=== PATIENT | male | born 1990 | race African-American/Black ===

== ENCOUNTER 2021-07-22 19:41 | Emergency (ER) | payer SELFPAY ==
[2021-07-22 20:25] VITALS: BP 107/61; PULSE 81; RESP 16; TEMP 37.1; O2SAT 97; BMI 29.0
--- NOTE | 2021-07-22 21:08 | ED.URI ---
HPI - URI/Sore Throat General Chief Complaint: Upper Respiratory Symptoms Stated Complaint: Fever,abd pain,sore throat Time Seen by Provider: 07/22/21 21:08 Source: patient Mode of arrival: ambulatory Limitations: no limitations History of Present Illness HPI Narrative: Patient complaining of body aches headache slight cough and sore throat has not received his COVID vaccine here exposed to patient with COVID at work 5 days ago no shortness of breath Related Data Allergies Allergy/AdvReac Type Severity Reaction Status Date / Time sulfamethoxazole Allergy Unknown HIVES Verified 07/22/21 20:30 [From BACTRIM] trimethoprim [From BACTRIM] Allergy Unknown HIVES Verified 07/22/21 20:30 lactose [LACTOSE] AdvReac Unknown DIARRHEA Verified 07/22/21 20:30 Review of Systems Review of Systems: Yes all other systems are reviewed and are negative PMFSH Past Medical History Medical History No known health problems Social History Social History Advance Directives: No Physical Exam Vital Signs: Vital Signs: Last Vital Signs Temp 98.7 F 07/22/21 20:25 Pulse 81 07/22/21 20:25 Resp 16 07/22/21 20:25 BP 107/61 07/22/21 20:25 Pulse Ox 97 07/22/21 20:25 BMI result Body Mass Index 29.0 Appearance: Alert. Oriented X3. No acute distress. ENT: Pharynx normal. Oral Mucosa moist Neck: Normal inspection. Neck supple. CVS: Normal heart rate and rhythm. Pulses normal. Respiratory: No respiratory distress. Equal air entry bilateral, no wheezing/rales/rhonchi Abdomen: Soft and nontender. Bowel sounds are present, Skin: Skin warm and dry. Normal skin color. Extremities: No lower extremity edema. Neuro: Oriented X 3. MDM - URI/Sore Throat Lab Data Attestation: I reviewed the patient's lab results. Labs: Lab Results 07/22/21 07/22/21 Range/Units 20:32 21:18 COVID-19 (HELLEN) Cancelled Positive A COVID-19 Clin Com Cancelled See Note Discharge Plan Discharge Clinical Impression: COVID-19 Patient Disposition: Home, Self-Care Instructions: COVID-19 (Coronavirus Disease 2019) (ED) Additional Instructions: Drink plenty of fluids Tylenol/Motrin for body aches Report to the ER/PCP if increased shortness of breath Stand Alone Forms: Work/School Release
[2021-07-22 21:36] LABS: COVID-19 Test Positive (Negative)
[2021-07-22] MEDS: Ibuprofen 600 MG TABLET PO (22:23)
== END 2021-07-22 22:28 | disposition home or self-care (01) ==
PROVIDERS: Emergency Provider Internal Medicine
DX: U07.1 COVID-19 (principal); R50.9 Fever, unspecified; M79.10 Myalgia, unspecified site; R51.9 Headache, unspecified
CPT/HCPCS: 87635; 99283

== ENCOUNTER 2022-08-17 02:31 | Emergency (ER) | payer OTHER, SELFPAY ==
[2022-08-17 02:41] VITALS: BP 122/80; BP 128/87; PULSE 75; PULSE 89; RESP 12; RESP 16; TEMP 36.7; O2SAT 98; BMI 31.3
--- NOTE | 2022-08-17 03:05 | ED_ITS ---
HPI - Eye Problem General Chief complaint: Eye Problems Stated complaint: work injury Time Seen by Provider: 08/17/22 02:49 Source: patient Mode of arrival: ambulatory Limitations: no limitations History of Present Illness HPI Narrative: While at work rubber flex pipe hit his left eye just prior to arrival since then patient is complaining of slight pain in the left eye vision is normal no scotomas slight bruising on the left cheek Related Data Allergies Allergy/AdvReac Type Severity Reaction Status Date / Time sulfamethoxazole Allergy Unknown HIVES Verified 07/22/21 20:30 [From BACTRIM] trimethoprim [From BACTRIM] Allergy Unknown HIVES Verified 07/22/21 20:30 lactose [LACTOSE] AdvReac Unknown DIARRHEA Verified 07/22/21 20:30 Review of Systems Review of Systems: Yes all other systems are reviewed and are negative [facility] Past Medical History Medical History No known health problems Social History Social History Advance Directives: No Physical Exam Vital Signs: Vital Signs: Last Vital Signs Temp 98.1 F 08/17/22 02:41 Pulse 75 08/17/22 02:41 Resp 16 08/17/22 02:41 BP 128/87 08/17/22 02:41 Pulse Ox 98 08/17/22 02:41 O2 Del Method 08/17/22 02:41 BMI result Body Mass Index 31.3 Const: General: cooperative, healthy appearing and no acute distress HEENT: Head: Yes normal to inspection Face images: 1. Superficial abrasion Eyes: General: appearance normal, both eyes and all related structures Visual Diggs: normal visual diggs by confrontation Alignment and Position: alignment normal Periorbital: periorbital findings abnormal (Slight soft tissue swelling lower lid) Conjunctivae: conjunctivae normal Sclerae: sclerae normal Corneas: corneas normal and fluorescein used Pupils: Equal, round and reactive pupils present EOM: EOMs intact bilaterally Direct Ophthalmoscopy: normal light reflex and no papilledema Resp: Effort & Inspection: normal respiratory effort Auscultation: clear to auscultation bilaterally Cardio: Rate: regular rate Rhythm: regular rhythm Neuro: Cranial nerves: Yes Equal, round and reactive pupils present Medications Administered Discontinued Medications Generic Name Dose Route Start Last Admin Trade Name Freq PRN Reason Stop Dose Admin Fluorescein Sodium 1 strip 08/17/22 03:20 08/17/22 03:31 Fluorescein Sodium Strip EYE-LEFT 08/17/22 03:21 1 strip ONCE ONE Administration Medical Decision Making Medical Decision Making [facility] Narrative: Patient with blunt injury to left eye 20/20 normal fundus exam normal, fluorescein test was negative for abrasion, discharge patient home advised to use ice pack Procedures Procedure Narrative Procedure Narrative: Ultrasound of left eye normal anterior chamber and posterior chamber normal, normal less position Discharge Plan Discharge Clinical Impression: Blunt injury, left eye Patient Disposition: Home, Self-Care Instructions: Eye Pain (ED) Additional Instructions: Ice pack, Tylenol/Motrin for pain 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
--- OUTSIDE RECORDS SUMMARY | 2022-08-17 03:15 | XMS_ITS | Continuity of Care Document ---
:1990 Author Organization [facility] Address [address] [place] [address]- Care Team Providers Name Role Phone Not on Staff, PCP Primary Care Physician Unavailable Encounter [facility] [place] Date(s): 08/02/21 - 08/02/[address] [address]- Discharge Disposition: A-D/C Home Attending Physician: Serjio Vaca DO Admitting Physician: Serjio Vaca DO Referring Physician: Not on Staff, Referring MD Allergies, Adverse Reactions, Alerts Substance Reaction Severity Status Bactrim Active Lactose Active Medications Motrin 600 mg oral tablet 600, mg, 1, tablet, By Mouth, 4 times a day, Scheduled / PRN, 15, 0, 0, 05/30/07 0:34:51, as needed for pain, Print JANIE Number, ADS OPPTHS, 64 Start Date: 05/30/07 Status: Ordered Results Radiology Reports Exam Date Time Procedure Performing Provider Status 08/02/21 2:20 PM Chest Portable Sonia Moreno; Auth (Verified) Notes:(Chest Portable) Reason For Exam: Chest Pain;Other:RESULT: Chest Portable Chest Portable CLINICAL INDICATION: Shortness of breath. COMPARISON: Chest x-ray, 05/01/2018. FINDINGS: The cardiac silhouette is within normal limits. Hilar and mediastinal contours are normal.The lungs are clear. There is no pleural effusion, pneumothorax, or evidence of CHF. No acute osseous abnormality is noted. IMPRESSION: No acute cardiopulmonary process. WSN: [id number] Ordering Physician: Zoya Grover Dictated By: Iza Bahkta MD Dictated Date/Time: 08/02/21 2:24 pm Reviewed By: Iza Bhakta MD Signed By: Iza Bhakta MD Signed Date/Time: 08/02/21 2:24 pm Transcribed By: JEANNE Transcribed Date/Time: 08/02/21 2:24 pm Vital Signs Most recent to oldest 1 2 3 [Reference Range]: Oxygen Saturation [94-100 %] 100 % 99 % 100 % (08/02/21 3:29 PM) (08/02/21 2:25 PM) (08/02/21 1:1 4 PM) Pulse Rate [55-90 bpm] 59 bpm 54 bpm 57 bpm (08/02/21 3:29 PM) *L* (08/02/21 1:14 PM) (08/02/21 2:25 PM) Blood Pressure [90-138/55-84 110/63 mm Hg 109/66 mm Hg 110 /58 mm Hg mm Hg] (08/02/21 3:29 PM) (08/02/21 2:25 PM) (08/02/21 1:1 4 PM) Respiratory Rate [16-30 16 br/min 24 br/min 20 br/mi n br/min] (08/02/21 3:29 PM) (08/02/21 1:14 PM) (08/02/21 12: 31 PM) Temperature [96.8-100.4 DegF] 98.1 DegF 98.5 DegF 98 .7 DegF (08/02/21 3:29 PM) (08/02/21 2:25 PM) (08/02/21 1:1 4 PM) Mode of Delivery (Oxygen) Room air Room air Room a ir (08/02/21 3:29 PM) (08/02/21 2:25 PM) (08/02/21 1:1 4 PM) Blood pressure sites Arm, right Arm, right Arm, right (08/02/21 3:29 PM) (08/02/21 2:25 PM) (08/02/21 1:1 4 PM) Temperature Route Oral Oral Oral (08/02/21 3:29 PM) (08/02/21 2:25 PM) (08/02/21 1:1 4 PM) Social History Social History Type Response Smoking Status 10 or more cigarettes (1/2 p ack or more)/day in last 30 days entered on: 08/24/18 Sex
[2022-08-17] MEDS: Fluorescein Sodium STRIP 1 STRIP EYE-LEFT (03:31)
== END 2022-08-17 04:00 | disposition home or self-care (01) ==
PROVIDERS: Emergency Provider Internal Medicine
DX: S00.12XA Contusion of left eyelid and periocular area, initial encounter (principal); W22.8XXA Striking against or struck by other objects, initial encounter; Y93.9 Activity, unspecified; Y92.59 Other trade areas as the place of occurrence of the external cause; Y99.0 Civilian activity done for income or pay
CPT/HCPCS: 99283

== ENCOUNTER 2022-09-13 03:33 | Emergency (ER) | payer OTHER, SELFPAY ==
[2022-09-13 04:02] VITALS: BP 132/85; PULSE 83; RESP 18; TEMP 36.4; O2SAT 99; BMI 28.8
--- NOTE | 2022-09-13 06:06 | PC.NURSE ---
pt left with out being seen.
== END 2022-09-13 06:09 | disposition left against medical advice (07) ==
PROVIDERS: Emergency Provider Emergency Medicine
DX: H57.12 Ocular pain, left eye (principal)
CPT/HCPCS: 99281

== ENCOUNTER 2022-09-25 10:42 | Outpatient (REF) | payer OTHER, SELFPAY ==
[2022-09-25 13:22] LABS: MANUAL DIFF FLAG NO
[2022-09-25 13:36] LABS: Basophils Absolute Auto 0.1 X10*3/uL (0.0-0.2); Basophils Percent Auto 1.2 % (0-2); Eosinophils Absolute Auto 0.1 X10*3/uL (0.0-0.4); Eosinophils Percent Auto 2.2 % (0-4); Hematocrit 50.3 % (42.0-52.0); Hemoglobin 16.9 g/dl (14.0-18.0); Imm Gran Abs Auto 0.01 X10*3/uL (0.00-0.03); Imm Gran Pct Auto 0.2 % (0.0-0.4); Lymphocytes Percent Auto 46.9 % (20-40); Mean Corpuscular HGB Conc 33.6 g/dl (31.0-36.0); Mean Corpuscular Hemoglobin 30.2 pg (27.0-33.0); Mean Corpuscular Volume 89.8 fL (80.0-98.0); Mean Platelet Volume 13.2 fL (9.4-12.4); Monocytes Absolute Auto 0.6 X10*3/uL (0.1-1.2); Monocytes Percent Auto 13.4 % (2-11); Neutrophils Absolute Auto 1.5 x10*3/uL (2.0-8.3); Neutrophils Percent Auto 36.1 % (45-73); Platelet Count 184 X10*3/uL (160-400); Red Cell Distribution Width 12.2 % (11.0-16.0); White Blood Count 4.2 X10*3/uL (4.8-10.8)
[2022-09-25 13:59] LABS: C Reactive Protein < 0.10 mg/dL (< or = 0.50); Rheumatoid Factor < 13.0 IU/mL (<15.0)
[2022-09-25 14:11] LABS: Syphilis Screen Nonreactive (Nonreactive)
[2022-09-25 14:35] LABS: Erythrocyte Sedimentation Rate 1 MM/HR (0-15)
[2022-09-28 08:34] LABS: Anti Nuclear Antibody Screen NEGATIVE (NEGATIVE)
[2022-09-30 05:20] LABS: Angiotensin Converting Enzyme 42 U/L (9-67)
== END 2022-09-25 10:43 | disposition home or self-care (01) ==
LOC: HO.10HDL 10:42
PROVIDERS: Visit Provider Ophthalmology
DX: H20.012 Primary iridocyclitis, left eye (principal); H20.9 Unspecified iridocyclitis
CPT/HCPCS: 36415; 82164; 85025; 85652; 86038; 86039; 86140; 86431; 86780

== ENCOUNTER 2023-07-18 11:44 | Emergency (ER) | payer BC, SELFPAY ==
--- NOTE | ~2023-07-18 | XR_ITS ---
EXAMINATION: XR CHEST CLINICAL INFORMATION: Cough COMPARISON: None available. TECHNIQUE: 2 views of the chest were obtained. FINDINGS: Lungs are well-inflated and clear. Trachea is midline in position. No interstitial disease, consolidation or mass. No pleural effusion or pneumothorax. Cardiac silhouette and pulmonary vessels are normal in size. The mediastinum and laury have normal contour. The visualized bones and upper abdomen are unremarkable. XR/XR chest 2V IMPRESSION: No acute cardiopulmonary abnormality.
--- NOTE | 2023-07-18 11:59 | ED_ITS ---
HPI - URI/Sore Throat General Chief Complaint: Upper Respiratory Symptoms Stated Complaint: Fever, chills, body aches Time Seen by Provider: 07/18/23 13:35 Source: patient, RN notes reviewed and old records reviewed Mode of arrival: ambulatory History of Present Illness HPI Narrative: 33-year-old male with no significant past medical history presenting to the ED complaining of myalgias, congestion, fever, cough, sore throat x last night. Denies taking any antipyretics today. Denies SOB, travel MD elicited complaint: fever and cough Related Data Previous Rx's Medication Instructions Recorded fluticasone propionate 50 2 spray intranasal DAILY #16 grams 07/18/23 mcg/actuation nasal spray,suspension (Flonase Allergy Relief) Allergies Allergy/AdvReac Type Severity Reaction Status Date / Time sulfamethoxazole Allergy Unknown HIVES Verified 09/13/22 04:04 [From BACTRIM] trimethoprim [From BACTRIM] Allergy Unknown HIVES Verified 09/13/22 04:04 lactose [LACTOSE] AdvReac Unknown DIARRHEA Verified 09/13/22 04:04 Review of Systems Review of Systems: Constitutional: + Fever, + Chills, +fatigue ENT/Mouth: No Ear Pain, + Nasal Congestion, No Sinus Pain, No Hoarseness, + sore throat, + Rhinorrhea, No Swallowing Difficulty Cardiovascular: No Chest Pain, No SOB Respiratory: + Cough, No Sputum, No Wheezing Gastrointestinal: No Nausea, No Vomiting, No Diarrhea, No Constipation, No Abdominal pain Musculoskeletal: No joint pain, + Myalgias, No Joint Swelling Skin: No Skin Lesions, No rash Neuro: No Weakness Yes all other systems are reviewed and are negative Constitutional: Constitutional: Reports as per [facility] Past Medical History Attestation statement: The following information was validated with the patient. Source: old records reviewed Onset Date is defined in the Problem List Problems that require an onset date and time if occurred within 24 hrs of arrival to the ED Aortic Dissection and Rupture; Neurologic impairment; Cardiopulmonary Arrest; Endotracheal Intubation; Insertion or Replacement of Mechanical Circulatory Assist Device Medical History No known health problems Physical Exam Vital Signs: Vital Signs: Last Vital Signs Temp 100.8 F H 07/18/23 13:35 Pulse 110 H 07/18/23 12:00 Resp 18 07/18/23 12:00 BP 114/66 07/18/23 12:00 Pulse Ox 95 07/18/23 12:00 O2 Del Method Room Air 07/18/23 12:00 BMI result Body Mass Index 30.1 Const: General: cooperative, healthy appearing and no acute distress Orientation/consciousness: patient oriented x3 Limitations: no limitations HEENT: Head: Yes normal to inspection and Yes atraumatic Ears: hearing grossly normal bilaterally, external ears normal, TM's normal bilaterally and mastoids normal General nose exam: Normal external nose present Face and sinus: Yes normal facial exam Mouth: Normal oral and palatal mucosa present Throat: Yes posterior oropharynx normal, Yes tonsils normal, Yes uvula midline, No peritonsillar mass and No uvular edema Eyes: General: appearance normal, both eyes and all related structures EOM: EOMs intact bilaterally Neck: Neck: Yes normal visual inspection and Yes no meningeal signs Resp: Effort & Inspection: normal respiratory effort and no respiratory distress Auscultation: clear to auscultation bilaterally, no crackles, no rales, no rhonchi and no wheezes Cardio: Rate: tachycardic Heart sounds: S1 normal heart sound present and S2 normal heart sound present Skin: Rashes: no rashes Wounds: no wounds Neuro: General: patient oriented x3, tone normal and no meningeal signs Cranial nerves: Yes CN's II-XII intact bilaterally Gait exam (Neuro): Normal gait present Extrem: General: Yes normal to inspection Course Course Course Narrative: RME: 33 yo M w/ no sig PMHx presenting to the ED c/o myalgias, congestion, fever, cough, sore throat x last night. 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 Tylenol, Viral testing, rapid strep, CXR ordered Full HPI, ROS and PE to be performed by primary ED provider. -CXR unremarkable. -COVID-19 positive Results discussed with patient including worrisome signs and symptoms and strict return precautions, and when to return to the emergency department. They verbalized understanding and feel safe for discharge at this time. Medications Administered Discontinued Medications Generic Name Dose Route Start Last Admin Trade Name Freq PRN Reason Stop Dose Admin Acetaminophen 975 mg 07/18/23 12:02 07/18/23 12:18 Acetaminophen 325 Mg Tablet PO 07/18/23 12:03 975 mg ONCE ONE Administration Medical Decision Making Medical Decision Making [facility] Narrative: 33-year-old male with no significant past medical history presenting to the ED complaining of myalgias, congestion, fever, cough, sore throat x last night. On exam initially febrile to 102.6, tachycardic likely from fever, NAD, nontoxic appearing, lungs CTA. Or pharynx WNL. Concern for viral illness. Rule out pneumonia. No evidence of strep pharyngitis/PUBLIC HEALTH OFFICER or retropharyngeal abscess Plan: Viral studies, CXR, antipyretic Please refer to course for remaining clinical decision making, interpretation of labs/imaging results, and discussions with consultants and/or family members. Differential Diagnosis Differential Diagnoses: The differential diagnosis associated with the pre sentation includes As above Lab Data [facility] Lab Attestation statement: I reviewed the patient's lab results. Labs: Lab Results 07/18/23 07/18/23 Range/Units 12:04 12:05 Influenza Type A (PCR) NEGATIVE (Negative) Influenza Type B (PCR) NEGATIVE (Negative) RSV RNA Qual (PCR) NEGATIVE (Negative) SARS-CoV-2 RNA (RT-PCR) POSITIVE A (Negative) S. pyogenes GrpA TANJA Negative (Negative) Radiology Impression Discussion of test interpretation with radiology: I have reviewed the radiologist's reading. Independent Historian Clinical information obtained from an independent historian. History obtained from or confirmed by: Parent External Record Review External record reviewed: Inpatient record, Office record, Outpatient record, Prior outpatient labs, Prior outpatient radiology, Primary care record and Outside ED record Tests considered The following testing was considered but not selected: As above Prescription Management I considered prescription management with: Pain Medication Discharge Plan Discharge Clinical Impression: COVID-19 Patient Disposition: Home, Self-Care Instructions: COVID-19 (Coronavirus Disease 2019) (ED) Additional Instructions: YOU HAVE COVID-19 At this time you will be okay for discharge. Please self isolate for 5 days. Do not expose yourself to others. You may not go to work or school. Please continue to follow cold instructions and wash your hands frequently. You may take Tylenol / Motrin as directed on the bottle for pain or fever. If you have constant or persistent shortness of breath, fever unresolved with medications, chest pain, or your unable to eat or drink please return to the ED CDC Guidelines for home isolation: - Stay away from others - WEAR A MASK if you are sick AND STAY HOME - Cover your mouth and nose with a tissue when you cough or sneeze. Dispose of tissues in a lined trash can and wash your hands immediately with soap and water for at least 20 seconds. If soap and water are not available, clean hands with alcohol-based hand b2b sales professional that contains at least 60% alcohol. - Clean your hands often with soap and water for at least 20 seconds - Avoid touching your eyes, nose and mouth with unwashed hands - Do not share dishes, drinking glasses, cups, eating utensils, towels, or bedding with other people in your home. After using these items, wash them thoroughly with soap and water or put in the dye colorist dyer. - Clean high-touch surfaces in your isolation area ( sick room and bathroom) every day; let a caregiver clean and disinfect high-touch surfaces in other areas of the home. Clean the area or item with soap and water or another detergent if it is dirty. Then, use a household disinfectant. - Limit contact with pets and animals: If you must care for a pet, wash your hands before and after interacting with them) Prescriptions: New fluticasone propionate [Flonase Allergy Relief] 50 mcg/actuation spray,suspension 2 spray intranasal DAILY Qty: 16 0RF Rx Instructions: administer into each nostril Referrals: Physician,Unknown J [Primary Care Provider] - Stand Alone Forms: Work/School Release
[2023-07-18 12:00] VITALS: BP 114/66; PULSE 110; RESP 18; TEMP 39.2; O2SAT 95; BMI 30.1
[2023-07-18] MEDS: Acetaminophen 325 MG TABLET 975 MG PO (12:18)
[2023-07-18 12:34] LABS: IDNOW Serial# 08D9AD1C; Strep A Nucleic Acid Negative (Negative)
[2023-07-18 13:20] LABS: Influenza A PCR NEGATIVE (Negative); Influenza B PCR NEGATIVE (Negative); Resp Syncy Virus RNA Qual PCR NEGATIVE (Negative); SARS COV2 PCR INHOUSE POSITIVE (Negative)
[2023-07-18 13:35] VITALS: TEMP 38.2
== END 2023-07-18 13:45 | disposition home or self-care (01) ==
PROVIDERS: Physician Assistant; Emergency Provider Emergency Medicine
DX: U07.1 COVID-19 (principal); R50.9 Fever, unspecified; R05.9 Cough, unspecified
CPT/HCPCS: 0241U; 71046; 87651; 99283

== ENCOUNTER 2024-08-18 16:00 | Emergency (ER) | payer BC, SELFPAY ==
--- NOTE | ~2024-08-18 | XR_ITS ---
CLINICAL HISTORY: chest pain 1 view chest x-ray Comparison: CR/SR - XR CHEST 2V - 07/18/23 12:59 EST Findings: The lungs are clear. Normal size heart. No acute fracture. IMPRESSION: 1. No acute findings. This document has been electronically signed by: Ash Oswald MD on 08/18/2024 17:28:58
--- NOTE | 2024-08-18 16:04 | ECG_ITS ---
Test Reason : CHEST PAIN Blood Pressure : */* mmHG Vent. Rate : 80 BPM Atrial Rate : 80 BPM P-R Int : 146 ms QRS Dur : 84 ms QT Int : 362 ms P-R-T Axes : 44 31 52 degrees QTcB Int : 417 ms Normal sinus rhythm Normal ECG No previous ECGs available Referred By: Generic ED Physician Electronically Signed By: RADHA LADD MD
[2024-08-18 16:50] VITALS: BP 108/76; PULSE 82; RESP 16; TEMP 36.2; O2SAT 97; BMI 30.4
[2024-08-18 20:38] LABS: Basophils Absolute Auto 0.1 X10*3/uL (0.0-0.2); Basophils Percent Auto 1.3 % (0-2); Eosinophils Absolute Auto 0.3 X10*3/uL (0.0-0.4); Eosinophils Percent Auto 6.4 % (0-4); Hematocrit 45.7 % (42.0-52.0); Hemoglobin 15.9 g/dl (14.0-18.0); Imm Gran Abs Auto 0.01 X10*3/uL (0.00-0.03); Imm Gran Pct Auto 0.2 % (0.0-0.4); Lymphocytes Percent Auto 63.1 % (20-40); MANUAL DIFF FLAG SCAN; Mean Corpuscular HGB Conc 34.8 g/dl (31.0-36.0); Mean Corpuscular Hemoglobin 30.4 pg (27.0-33.0); Mean Corpuscular Volume 87.4 fL (80.0-98.0); Mean Platelet Volume 11.9 fL (9.4-12.4); Monocytes Absolute Auto 0.5 X10*3/uL (0.1-1.2); Monocytes Percent Auto 10.6 % (2-11); Neutrophils Absolute Auto 0.9 x10*3/uL (2.0-8.3); Neutrophils Percent Auto 18.4 % (45-73); Platelet Count 240 X10*3/uL (160-400); Red Blood Count 5.23 X10*6/uL (4.60-5.80); Red Cell Distribution Width 12.1 % (11.0-16.0); SCAN SMEAR FLAG 1; White Blood Count 4.7 X10*3/uL (4.8-10.8)
[2024-08-18 20:54] LABS: Alanine Aminotransferase 42 U/L (0-40); Albumin Level 4.3 g/dL (3.5-5.0); Alkaline Phosphatase 83 U/L (39-117); Anion Gap 14 (12-20); Aspartate Amino Transferase 30 U/L (5-37); Bilirubin Total 0.3 mg/dL (0.0-1.0); Blood Urea Nitrogen 9 mg/dL (9-16); Carbon Dioxide 23 mmol/L (22-29); Chloride 107 mmol/L (96-108); Creatinine Clr Calc Pharmacy 118.7; Estimated Glomerular Filt Rate > 60; Glucose Random 101 mg/dL (60-115); Magnesium 2.2 mg/dL (1.6-2.6); Potassium 3.6 mmol/L (3.3-5.1); Sodium 140 mmol/L (135-145); Total Protein 7.9 g/dL (6.5-8.0)
[2024-08-18 21:04] LABS: Troponin-I High Sensitivity < 2.7 ng/L (<3.5-35.0)
[2024-08-18 21:15] LABS: Influenza A PCR NEGATIVE (Negative); Influenza B PCR NEGATIVE (Negative); Resp Syncy Virus RNA Qual PCR NEGATIVE (Negative); SARS COV2 PCR INHOUSE NEGATIVE (Negative)
[2024-08-18 21:23] LABS: SLIDE REVIEW VERIFIED
[2024-08-19] VITALS: BP 112/76; PULSE 72; RESP 16; TEMP 36.2; O2SAT 97
--- NOTE | 2024-08-19 00:48 | ED.CHESTPAIN ---
HPI - Chest Pain General Chief Complaint: Chest Pain Stated Complaint: Chest pain Time Seen by Provider: 08/18/24 23:22 Source: patient Limitations: no limitations History of Present Illness ED Provider: Elza Hernández PA-C HPI narrative: 34-year-old otherwise healthy male presents with right-sided chest pain x1 week. Patient states he performs many physical tasks at work, he strained his anterior chest wall. Pain worse with movement of right upper extremity movement of torso and palpation of chest wall. Denies shortness of breath, or cough or cold symptoms. No fevers. Related Data Previous Rx's ?Medication ?Instructions ?Recorded fluticasone propionate 50 2 spray intranasal DAILY #16 grams 07/18/23 mcg/actuation nasal spray,suspension (Flonase Allergy Relief) ibuprofen 600 mg tablet 600 mg PO Q6H PRN pain #20 tabs 08/19/24 methocarbamol 750 mg tablet 1,500 mg (2 x 750 mg) PO TID PRN 08/19/24 pain, moderate #20 tabs Allergies Allergy/AdvReac Type Severity Reaction Status Date / Time sulfamethoxazole Allergy Unknown HIVES Verified 08/18/24 16:52 [From BACTRIM] trimethoprim [From BACTRIM] Allergy Unknown HIVES Verified 08/18/24 16:52 lactose [LACTOSE] AdvReac Unknown DIARRHEA Verified 08/18/24 16:52 Review of Systems Review of Systems: Yes all other systems are reviewed and are negative Constitutional: Constitutional: Denies fever(s) Cardiovascular: Cardiovascular: Reports chest pain and Denies dyspnea Respiratory: Respiratory: Denies cough and Denies dyspnea Gastrointestinal: Gastrointestinal: Denies abdominal pain, Denies nausea and Denies vomiting PMF Past Medical History Attestation statement: The following information was validated with the patient. Medical History No known health problems Social History Social History Advance Directives: No Advance Directives Information Provided: No Do you have a plan to hurt others: No Plan Physical Exam Vital Signs: Vital Signs: Last Vital Signs Temp 97.2 F 08/19/24 00:00 Pulse 72 08/19/24 00:00 Resp 16 08/19/24 00:00 BP 112/76 08/19/24 00:00 Pulse Ox 97 08/19/24 00:00 O2 Del Method Room Air 08/19/24 00:00 BMI result Body Mass Index 30.4 Const: Other: Alert, well-appearing Orientation/consciousness: patient oriented x3 Chest: Other: Tenderness to palpation across right anterior chest wall, no deformity Resp: Effort & Inspection: normal respiratory effort Cardio: Other: Normal peripheral perfusion Skin: Other: Warm dry no rash Neuro: General: patient oriented x3, gait normal, no focal motor deficits and CN's II-XI intact bilaterally Extrem: Other: Pain elicited right anterior chest wall with movement of right upper extremity Psych: Other: Calm cooperative Medical Decision Making Medical Decision Making MDM Narrative: 34-year-old otherwise healthy male presents with right-sided chest pain x1 week. Patient states he performs many physical tasks at work, he strained his anterior chest wall. Pain worse with movement of right upper extremity movement of torso and palpation of chest wall. Denies shortness of breath, or cough or cold symptoms. No fevers. No chronic issues History: Per patient I have considered the following differential diagnoses: Chest wall strain, pneumonia, viral syndrome, costochondritis, ACS Plan: ACS was considered, screening labs including cardiac enzymes EKG and chest x-ray were obtained, however the patient's symptoms are consistent with chest wall strain and he has a mechanism of injury to support it. Furthermore his heart score is 0. Thought about costochondritis, however he has not had preceding viral syndrome. Likewise, he has no infectious symptoms to suggest pneumonia. I have independently reviewed the following tests: Labs: No leukocytosis, not anemic, no electrolyte abnormality troponin negative, viral panel negative EKG: Normal sinus rhythm, rate of 80, no ischemic changes no ectopy Chest x-ray:Findings: The lungs are clear. Normal size heart. No acute fracture. IMPRESSION: 1. No acute findings. This document has been electronically signed by: Ash Oswald MD on 08/18/2024 17:28:58 Lab Data 08/18/24 20:32 08/18/24 20:32 Labs: Lab Results 08/18/24 Range/Units 20:32 WBC 4.7 L (4.8-10.8) X10*3/uL RBC 5.23 (4.60-5.80) X10*6/uL Hgb 15.9 (14.0-18.0) g/dl Hct 45.7 (42.0-52.0) % MCV 87.4 (80.0-98.0) fL MCH 30.4 (27.0-33.0) pg MCHC 34.8 (31.0-36.0) g/dl RDW 12.1 (11.0-16.0) % Plt Count 240 D (160-400) X10*3/uL MPV 11.9 (9.4-12.4) fL Immature Gran % (Auto) 0.2 (0.0-0.4) % Neut % (Auto) 18.4 L (45-73) % Lymph % (Auto) 63.1 H (20-40) % [place] % (Auto) 10.6 (2-11) % Eos % (Auto) 6.4 H (0-4) % Baso % (Auto) 1.3 (0-2) % Lymph # (Auto) 3.0 (1.2-4.9) X10*3/uL [place] # (Auto) 0.5 (0.1-1.2) X10*3/uL Eos # (Auto) 0.3 (0.0-0.4) X10*3/uL Baso # (Auto) 0.1 (0.0-0.2) X10*3/uL Abs Immat Gran (auto) 0.01 (0.00-0.03) X10*3/uL Absolute Neuts (auto) 0.9 L (2.0-8.3) x10*3/uL Absolute Nucleated RBC 0.000 (0.0-0.012) X10*3/uL Nucleated RBC % (auto) 0.0 (0.0-0.2) /100WBC Smear Tech's Comments VERIFIED Sodium 140 (135-145) mmol/L Potassium 3.6 (3.3-5.1) mmol/L Chloride 107 (96-108) mmol/L Carbon Dioxide 23 (22-29) mmol/L Anion Gap 14 (12-20) BUN 9 (9-16) mg/dL Creatinine 0.95 (0.5-1.4) mg/dL Estim Creat Clear Calc 118.7 Estimated GFR > 60 Random Glucose 101 (60-115) mg/dL Calcium 9.0 (8.4-10.2) mg/dL Magnesium 2.2 (1.6-2.6) mg/dL Total Bilirubin 0.3 (0.0-1.0) mg/dL AST 30 (5-37) U/L ALT 42 H (0-40) U/L Alkaline Phosphatase 83 (39-117) U/L Troponin I High Sens < 2.7 (<3.5-35.0) ng/L Total Protein 7.9 (6.5-8.0) g/dL Albumin 4.3 (3.5-5.0) g/dL Influenza Type A (PCR) NEGATIVE (Negative) Influenza Type B (PCR) NEGATIVE (Negative) RSV RNA Qual (PCR) NEGATIVE (Negative) SARS-CoV-2 RNA (RT-PCR) NEGATIVE (Negative) Discharge Plan Discharge Clinical Impression: Strain of chest wall Patient Disposition: Home, Self-Care Instructions: Chest Wall Pain (ED) Additional Instructions: You are being treated for chest wall strain. See home care instructions. Use the ibuprofen as directed as an anti-inflammatory. Use the methocarbamol, this is a muscle relaxant, as needed for further pain. To note this medication will cause drowsiness, do not drive or operate machinery while taking the medication. All of your screening labs including a cardiac enzymes were normal, there were no concerning changes on the EKG in your chest x-ray is clear. Follow up with your primary care provider as needed. Prescriptions: New ibuprofen 600 mg tablet 600 mg PO Q6H PRN (Reason: pain) Qty: 20 0RF methocarbamol 750 mg tablet 1,500 mg PO TID PRN (Reason: pain, moderate) Qty: 20 0RF No Action fluticasone propionate [Flonase Allergy Relief] 50 mcg/actuation spray,suspension 2 spray intranasal DAILY Qty: 16 0RF Rx Instructions: administer into each nostril Stand Alone Forms: Work/School Release Print Language: [place]
--- NOTE | 2024-08-19 01:37 | PC.NURSE ---
reviewed discharge instructions with pt. pt verbalized understanding, no sign of distress upon discharge. pt able to ambulate with a steady gait.
[2024-08-19 01:38] VITALS: BP 112/76; PULSE 72; RESP 16; TEMP 36.2; O2SAT 97
== END 2024-08-19 01:38 | disposition home or self-care (01) ==
PROVIDERS: Emergency Provider Emergency Medicine
DX: R07.9 Chest pain, unspecified (principal); S29.011A Strain of muscle and tendon of front wall of thorax, initial encounter; X58.XXXA Exposure to other specified factors, initial encounter; Y93.9 Activity, unspecified; Y92.9 Unspecified place or not applicable; Y99.9 Unspecified external cause status; Z03.818 Encounter for observation for suspected exposure to other biological agents ruled out
CPT/HCPCS: 0241U; 36415; 71045; 80053; 83735; 84484; 85025; 93005; 99283; 99285

== ENCOUNTER → 2024-08-18 16:04 | Outpatient (BNV) | payer BC, SELFPAY | PROVIDERS: Emergency Provider Emergency Medicine; Visit Provider Internal Medicine Cardiovascular Disease | DX: R07.9 Chest pain, unspecified (principal) | CPT/HCPCS: 93010 ==

== ENCOUNTER → 2024-08-18 16:54 | Outpatient (BNV) | payer BC, SELFPAY | PROVIDERS: Visit Provider Radiology Diagnostic Radiology | DX: R07.9 Chest pain, unspecified (principal) | CPT/HCPCS: 71045 ==

== ENCOUNTER 2024-12-22 08:54 | Outpatient (AMB) | payer BC, SELFPAY ==
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
[2024-12-22 09:01] VITALS: BP 126/83; PULSE 86; O2SAT 98; BMI 28.1
--- OUTSIDE RECORDS SUMMARY | 2024-12-22 09:20 | XMS_ITS | Data Portability ---
Author Organization JOSEP Clemente s, [address] Address [address] [place] [address] Care Team Providers Care Offset Press Assistant Name Role Phone [facility] Insurance Adju ster Unavailable Assessment No assessment recorded. Plan of Treatment Reminders Order Date Submit Date Provider Last Modified By Organization Details Last Modified Time Details Appointments None recorded. Lab None recorded. Referral None recorded. Procedures None recorded. Surgeries None recorded. Imaging None recorded. Medication Orders clindamycin HCl 300 mg capsule 2023 024 [facility]/Pharmacy #[id number], [address] [place], [address], 19:47:39 triamcinolo ne acetonide 0.1 % topical cream [id number] [address] [place], [address], 19:48:25 prednisone [address] tablet [id number] [address] [place], [address], 19:45:37 Patient TargetsNo targets recorded. Patient Instructions Encounter Date Encounter Id Patient Instructions Last Modified By Organization Details Last Modified Time 11/09/2023 [id number] lupus: care instructions Not available 11/09/2023 09:13:36 rash: care instructions Not available 11/09/2023 09:13:36 12/30/2023 [id number] hives: care instructions [email or web address] Not available 12/30/2023 19:47:38 Reason for Referral None Reported. Problems Name Problem SNOMED Code Status Onset Date Resolution Date Notes Provider Name and Address Organization Details Recorded Time Rash of systemic lupus erythematosus 22001102 Active 2023 Monica Krause, ELVIRA [address] , [place], [address], [place] - [facility] 4 09:12:05 Cellulitis of skin 542270730 Active 2023 Remi Gonzalez, DO [address] , [place], [address], [place] - [facility] 4 19:48:32 Problem Notes None recorded. Medical Equipment None Reported. Allergies Allergen ID Allergen Name Allergen Category Reaction Reaction Severity Criticality Documentation Date Start Date Code Code System Note Provider Name and Address Organization Details Recorded Time 980357 Bactrim medicatio n anaphylax is Not available high 11/09/2023 81146 9 RxNorm Sonia mccarty, [place] - [facility] 4 19:45:23 504420 lactose food,medi cation nausea severe Not available 12/30/2023 6211 RxNorm Soniacyn Templeton null, [place] - [facility] 4 19:45:51 Medications Name Sig Start Date Stop Date Status Note LastModified by Organization Details LastModified Time clindamycin HCl 300 mg capsule Take 1 capsule every 8 hours by oral route for 10 days. 2023 active Not Available Not Available Not Avai lable triamcinolone acetonide 0.1 % topical cream APPLY A THIN LAYER TO THE AFFECTED AREA(S) BY TOPICAL ROUTE 2 TIMES PER DAY as needed 2023 active Not Available Not Available Not Avai lable Vitals Date Recorded Body height Body mass index (BMI) Body weight Oxygen saturation Oxygen saturation in Arterial blood by Pulse oximetry Heart rate Body temperature Systolic blood pressure Diastolic blood pressure Provider Name and Address Organization Details Last Updated DateTime 4 172.72 cm 30.7 kg/m2 24530.6 6 g 98.5 % 98.5 % 79 /min 98.5 [degF] 152 mm[Hg] 97 mm[Hg] Susana Smith PA [employer] [facility] 4 08:45:28 Date Recorded Body height Body mass index (BMI) Body weight Oxygen saturation Oxygen saturation in Arterial blood by Pulse oximetry Heart rate Respiratory rate Body temperature Systolic blood pressure Diastolic blood pressure Provider Name and Address Organization Details Last Updated DateTime 4 172.72 cm 30.9 kg/m2 87909.2 5 g 97 % 97 % 108 /min 18 /min 97.1 [degF] 127 mm[Hg] 86 mm[Hg] Sonia Templeton PA [employer] [facility] 4 19:44:54 Social History Question Answer Notes LastModified by Phase III Development Details LastModified Time Tobacco Smoking Status Current Every Day Smoker [facility]ccarty [facility] 12/30/2023 19:46:46 Have You Had A Flu Shot This Season? Yes [email or web address] Information not available 12/30/2023 Have You Had Direct Contact, Or Contact During Intimacy, With Monkeypox Rash, Scabs, Or Body Fluids From A Person With Monkeypox? No Information not available 11/09/2023 What Is Your Relationship Status? [email or web address] Information not available 12/30/2023 Have You Recently Traveled Abroad? No Information not available 11/09/2023 Are You Currently In School? No Information not available 11/09/2023 Sex: Unknown Functional Status Question Answer Note LastModified by [facility] Details LastModified Time How many times per week do you consume alcohol? Less than 1 time per week [email or web address] Information not available 12/30/2023 Do you use any illicit or recreational drugs? No Information not available 12/30/2023 Do you or have you ever used any other forms of tobacco or nicotine? Yes Information not available 11/09/2023 What is your level of alcohol consumption? Occasional [email or web address] Information not available 12/30/2023 Are you currently employed? Yes Information not available 11/09/2023 Mental Status None recorded. Family History Relationship Description Onset Age of this Age Resolved Age Notes LastModified by Organization Details LastModified Time Mother Lupus erythematosu s [email or web address] Not available 2023 19:46:14 Mother Malignant neoplastic disease [email or web address] Not available 2023 19:46:25 Medical History No medical history recorded. Past Encounters Encounter ID Performer Location Encounter Start Date Encounter Closed Date Diagnosis/Indication Diagnosis SNOMED-CT Code Diagnosis ICD10 Code Diagnosis Note [id number] [address] [place] [address] 07/20/2021 11:23:00 07/20/2021 12:07:15 [id number] [address] [place] [address] 11/05/2020 09:02:57 11/05/2020 09:25:26 [id number] [address] [place] [address] 04/29/2018 18:04:12 04/29/2018 18:56:59 [id number] [address] [place] [address] 02/20/2018 18:26:14 02/20/2018 20:24:50 [id number] [address] [address] [address] 08/02/2021 11:27:35 08/02/2021 11:58:51 [id number] [place] [address] 11/24/2020 12:51:08 11/24/2020 13:37:17 [id number] [facility] [address] 07/12/2021 09:11:17 07/12/2021 10:33:33 [id number] [facility] [address] 06/20/2021 08:51:14 06/20/2021 14:36:02 [id number] [facility] [address] 09/25/2017 11:06:27 09/25/2017 11:54:00 [id number] [place] Krause [place] [address] [address] 11/09/2023 08:20:09 11/09/2023 09:22:35 Rash of systemic lupus erythematosus 10933187 M32.8 Keep your daily schedule as simple as possible.K eep your list of things to do as short as you can.Exerci se regularly. A daily walk or swim, for example, can lower stress, clear your head, improve your mood, and help fight tiredness. Use meditation , yoga, or guided imagery to relax.Get plenty of rest. Some people with lupus need up to 12 hours of sleep every night.Pace yourself. Do not do too many activities .Ask others for help. Do not try to do everything yourself.T krzysztof short breaks from your usual activities . Think about cutting down on work hours when your symptoms are severe.If you think that depression or anxiety is making you feel more tired, talk to your doctor, a mental health profession al, or both.follo w up with your regular doctor for complete evaluation of possible lupus flare [place] [id number] [place] [address] [address] 12/30/2023 19:33:28 12/30/2023 19:49:56 Cellulitis of skin 648937130 L03.90 See pcp in 3-4 days. Go to ER if anything worsens. Otc tylenol as needed for pain. Symptomati c treatment. use cool compress. probiotics and yogurt daily po All of patients questions have been answered. Patient has understand ing and agreement of all of this. Health Concerns Section Related Observation LastModified by Organization Detai ls LastModified Time None Recorded Concern Status LastModified by Organization Details LastModified Time None Recorded Advance Directives Directive None Recorded Payers Insurance Date Sequence Insurance Name Policy Number Policy Dennison Covered Member ID Dennison Member ID Guarantor Name 12/30/2023 1 [place] [id number] Saurabh Edwards [id number] Saurabh Edwards 11/09/2023 AMGUARD [id number] [employer] Saurabh Edwards 11/09/2023 GENERIC WORKERS COMP Saurabh Edwards 11/09/2023 GENERIC WORKER'S COMP (MOVED TO HOLD) Saurabh Edwards 11/09/2023 1 [place] Saurabh Edwards [id number] Saurabh Edwards Notes Date Note Type Note Provider Name and Address Organization Details Recorded Time 11/09/2023 text/html Skin Redness UCReported bypatient.Location:f nat; bilateral arm; bilateral hand Quality:not painful;erythematous Severity:moderate Duration:4 weeks Onset:gradual onset Alleviating factors:nothing gives relief Aggravating factors:nothing makes it worse Symptoms:no fever; no nausea; no vomiting Presents with rash for a month now , both arms and around his right eye, cheeks with other associated sx Monica Krause, ELVIRA [address] [facility] [place], [address], [place] [employer] [facility] 11/09/2023 19:53:34 12/30/2023 text/html pt presenting w/ rash today left antecubital area. Onset 5-6 days ago. pt reports he was away @ [place], prolonged sun exposure- pt did not use sunscreen. pt has rash in L. AC area, scabbed and raw, pt reports it is intermittently itchy, has gotten worse over the course. pt reports slightly spread to R. arm. pt has tried cortisone cream, denies pain, and radiation of pain. no feversno hx of eczema or psoriasis. no hx of multple frequent rashes Remi Gonzalez DO [address] [place], [address], PA [email or web address] [facility] 12/30/2023 19:56:51
== END 2024-12-22 09:30 | disposition home or self-care (01) ==
LOC: HO.PMC 08:55
PROVIDERS: PCP Nurse Practitioner Family; Referring Provider Nurse Practitioner Family; Visit Provider Nurse Practitioner Family
DX: M54.16 Radiculopathy, lumbar region (principal); G89.29 Other chronic pain; M51.360 Other intervertebral disc degeneration, lumbar region with discogenic back pain only; M47.816 Spondylosis without myelopathy or radiculopathy, lumbar region; M25.551 Pain in right hip
CPT/HCPCS: 99204

== ENCOUNTER → 2024-12-22 08:54 | Outpatient (BNVA) | payer BC, SELFPAY | PROVIDERS: PCP Nurse Practitioner Family; Referring Provider Nurse Practitioner Family; Visit Provider Nurse Practitioner Family ==

== ENCOUNTER → 2024-12-30 18:57 | Outpatient (BNV) | payer BC, SELFPAY | PROVIDERS: Visit Provider Radiology Diagnostic Radiology | DX: M51.27 Other intervertebral disc displacement, lumbosacral region (principal) | CPT/HCPCS: 72148 ==

== ENCOUNTER 2024-12-30 19:15 | Outpatient (REF) | payer BC, SELFPAY ==
--- NOTE | ~2024-12-30 | MR_ITS ---
EXAMINATION: MR LUMBAR SPINE WITHOUT IV CONTRAST History: M54.16 - Radiculopathy, lumbar region Technique: Sagittal T1, T2 and STIR, and axial T1 and T2 weighted images of the lumbar spine were obtained per departmental protocol. Comparison: There are no prior studies available for comparison. Findings: There is mild levoscoliosis. The vertebral bodies maintain normal height and marrow signal intensity. There is no spondylolisthesis. There is mild degenerative disc disease at the L5-S1 level with disc desiccation and loss of disc height. At T12-L1,there is no evidence of disc herniation, central spinal stenosis, or neural foraminal narrowing. At L1-2, there is no evidence of disc herniation, central spinal stenosis, or neural foraminal narrowing. At L2-3, there is no evidence of disc herniation, central spinal stenosis, or neural foraminal narrowing. At L3-4, there is no evidence of disc herniation, central spinal stenosis, or neural foraminal narrowing. At L4-5, there is no evidence of disc herniation, central spinal stenosis, or neural foraminal narrowing. At L5-S1, there is a moderate central/left paramedian disc protrusion causing mild mass effect on the thecal sac and descending left S1 nerve root. There is no central spinal or neural foraminal stenosis. The conus terminates at the T12-L1 level and demonstrates normal signal intensity. There are probable subcentimeter cyst at the upper pole of the right kidney. MR/MR lumbar spine wo con Impression: 1. Mild levoscoliosis. Mild degenerative disc disease at L5-S1. 2. Moderate central/left paramedian disc protrusion at L5-S1 causing mild mass effect on the thecal sac and descending left S1 nerve root. Electronically signed by: Elías Henderson MD 12/31/2024 07:36 AM EDT
--- OUTSIDE RECORDS SUMMARY | 2024-12-30 19:21 | XMS_ITS | Data Portability ---
Author Organization JOSEP Clemente s, [address] Address [address] [place] [address] Care Team Providers Care Welt Beater Name Role Phone [facility] Insurance Adju ster Unavailable Assessment No assessment recorded. Plan of Treatment Reminders Order Date Submit Date Provider Last Modified By Organization Details Last Modified Time Details Appointments None recorded. Lab None recorded. Referral None recorded. Procedures None recorded. Surgeries None recorded. Imaging None recorded. Medication Orders clindamycin HCl 300 mg capsule 2023 024 [id number] [address] [place] [address], [address], 19:47:39 triamcinolo ne acetonide 0.1 % topical cream 2023 024 [id number] [address] [place], [address], 19:48:25 prednisone 10 mg tablet 2023 024 [facility] [address] [place], [address], 19:45:37 Patient TargetsNo targets recorded. Patient Instructions Encounter Date Encounter Id Patient Instructions Last Modified By Organization Details Last Modified Time 11/09/2023 [id number] lupus: care instructions Not available 11/09/2023 09:13:36 rash: care instructions Not available 11/09/2023 09:13:36 12/30/2023 [id number] hives: care instructions [email or web address] Not available 12/30/2023 19:47:38 Reason for Referral None Reported. Problems Name Problem SNOMED Code Status Onset Date Resolution Date Notes Provider Name and Address Organization Details Recorded Time Rash of systemic lupus erythematosus 95150957 Active 2023 Monica Krause, ELVIRA [address], [place], [address], [place] - [facility] 4 09:12:05 Cellulitis of skin 781226965 Active 2023 Remi Gonzalez DO [address], [place], [address], [place] - [facility] 4 19:48:32 Problem Notes None recorded. Medical Equipment None Reported. Allergies Allergen ID Allergen Name Allergen Category Reaction Reaction Severity Criticality Documentation Date Start Date Code Code System Note Provider Name and Address Organization Details Recorded Time 621411 Bactrim medicatio n anaphylax is Not available high 11/09/2023 29975 9 RxNorm Sonia Templeton null, [place] - [facility] 19:45:23 116815 lactose food,medi cation nausea severe Not available 12/30/2023 6211 RxNorm Soniacyn Templeton null, PA - [facility] 19:45:51 Medications Name Sig Start Date Stop [...] and Address Organization Details Last Updated DateTime 172.72 cm 30.7 kg/m2 08415.6 6 g 98.5 % 98.5 % 79 /min 98.5 [degF] 152 mm[Hg] 97 mm[Hg] Susana Smith PA - [facility] 4 08:45:28 Date Recorded Body height Body mass index (BMI) Body weight Oxygen saturation Oxygen saturation in Arterial blood by Pulse oximetry Heart rate Respiratory rate Body temperature Systolic blood pressure Diastolic blood pressure Provider Name and Address Organization Details Last Updated DateTime 4 172.72 cm 30.9 kg/m2 59774.2 5 g 97 % 97 % 108 /min 18 /min 97.1 [degF] 127 mm[Hg] 86 mm[Hg] Sonia Templeton PA - [facility] 4 19:44:54 Social History Question Answer Notes LastModified by [employer] Details LastModified Time Tobacco Smoking Status Current Every Day Smoker Sonia mccarty [place] - [facility] 12/30/2023 19:46:46 Have You Had A Flu Shot This Season? Yes [email or web address] Information not available 12/30/2023 Have You Had Direct Contact, Or Contact During Intimacy, With Monkeypox Rash, Scabs, Or Body Fluids From A Person With Monkeypox? No Information not available 11/09/2023 What Is Your Relationship Status? [email or web address] Information not available 12/30/2023 Have You Recently Traveled Abroad? No Information not available 11/09/2023 Are You Currently In School? No Information not available 11/09/2023 Sex: Unknown Functional Status Question Answer Note LastModified by [employer] Details LastModified Time How many times per week do you consume alcohol? Less than 1 time per week [email or web address] Information not available 12/30/2023 Do you use any illicit or recreational drugs? No [email or web address] Information not available 12/30/2023 Do you or have you ever used any other forms of tobacco or nicotine? Yes Information not available 11/09/2023 What is your level of alcohol consumption? Occasional Information not available 12/30/2023 Are you currently employed? Yes Information not available 11/09/2023 Mental Status None recorded. Family History Relationship Description Onset Age of this Age Resolved Age Notes LastModified by Organization Details LastModified Time Mother Lupus erythematosu s [email or web address] Not available 2023 19:46:14 Mother Malignant neoplastic disease [email or web address] Not available 2023 19:46:25 Medical History No medical history recorded. Past Encounters Encounter ID Performer Location Encounter Start Date Encounter Closed Date Diagnosis/Indication Diagnosis SNOMED-CT Code Diagnosis ICD10 Code Diagnosis Note [id number] [address] [place] [address] 07/20/2021 11:23:00 07/20/2021 12:07:15 [id number] [address] [place] [address] 11/05/2020 09:02:57 11/05/2020 09:25:26 [id number] [address] [place] [address] 04/29/2018 18:04:12 04/29/2018 18:56:59 [id number] [address] [place] [address] 02/20/2018 18:26:14 02/20/2018 20:24:50 [id number] [facility] [address] 08/02/2021 11:27:35 08/02/2021 11:58:51 [id number] [place] [address] 11/24/2020 12:51:08 11/24/2020 13:37:17 [id number] [facility] [address] 07/12/2021 09:11:17 07/12/2021 10:33:33 [id number] [facility] [address] 06/20/2021 08:51:14 06/20/2021 14:36:[id number] [place] [address] 09/25/2017 11:06:27 09/25/2017 11:54:00 [id number] oMnica Krause NP [address] [address] 11/09/2023 08:20:09 11/09/2023 09:22:35 Rash of systemic lupus erythematosus 81468628 M32.8 Keep your daily schedule as simple [...] complete evaluation of possible [place] [id number] [place] [address] [address] 12/30/2023 19:33:28 12/30/2023 19:49:56 Cellulitis of skin 203024539 L03.90 See pcp in 3-4 days. Go [...] ID Guarantor Name 12/30/2023 1 [place] [id number] Saurabh Edwards [id number] Saurabh Edwards 11/09/2023 AMGUARD [id number] [employer] Saurabh Edwards 11/09/2023 [employer] WORKERS COMP Saurabh Edwards 11/09/2023 GENERIC WORKER'S COMP (MOVED TO HOLD) Saurabh Edwards 11/09/2023 1 [place] Saurabh Edwards [id number] Saurabh Edwards Notes Date Note Type [...] other associated sx Monica Krause, ELVIRA [address] [facility] [place], [address], [email or web address] 11/09/2023 19:53:34 12/30/2023 text/html pt presenting w/ rash today left antecubital area. Onset 5-6 days ago. pt reports he was away @ [place], prolonged sun exposure- pt did not use sunscreen. pt has rash in L. AC area, scabbed and raw, pt reports it is intermittently itchy, has gotten worse over the course. pt reports slightly spread to R. arm. pt has tried cortisone cream, denies pain, and radiation of pain. no feversno hx of eczema or psoriasis. no hx of multple frequent rashes Remi Gonzalez, [address] [place], [address], [email or web address] 12/30/2023 19:56:51
== END 2024-12-30 19:16 | disposition home or self-care (01) ==
LOC: HO.MRI 19:15
PROVIDERS: Visit Provider Nurse Practitioner Family
DX: M54.16 Radiculopathy, lumbar region (principal); G89.29 Other chronic pain; M51.360 Other intervertebral disc degeneration, lumbar region with discogenic back pain only; M47.816 Spondylosis without myelopathy or radiculopathy, lumbar region; M51.26 Other intervertebral disc displacement, lumbar region
CPT/HCPCS: 72148

== ENCOUNTER 2025-02-10 10:36 | Outpatient (AMB) | payer BC, SELFPAY ==
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
[2025-02-10 10:42] VITALS: BP 124/77; PULSE 80; O2SAT 100; BMI 28.2
== END 2025-02-10 10:55 | disposition home or self-care (01) ==
LOC: HO.PMC 10:37
PROVIDERS: Visit Provider Nurse Practitioner Family
DX: N28.1 Cyst of kidney, acquired (principal); M54.16 Radiculopathy, lumbar region; M51.360 Other intervertebral disc degeneration, lumbar region with discogenic back pain only; M47.816 Spondylosis without myelopathy or radiculopathy, lumbar region; M41.9 Scoliosis, unspecified; M51.27 Other intervertebral disc displacement, lumbosacral region
CPT/HCPCS: 99214

== ENCOUNTER 2025-03-05 08:18 | Outpatient (REF) | payer BC, SELFPAY ==
--- NOTE | ~2025-03-05 | FL_ITS ---
EXAMINATION: FL GUIDANCE ONLY HISTORY: M54.16 - Radiculopathy, lumbar region COMPARISON: None available. TECHNIQUE: Fluoroscopy time: 0.1 minutes. Cumulative Dose: 3.38 mGy. DAP: 0.0168 mGym2 Images: 3. FINDINGS: Fluoroscopic spot films of the lower lumbar spine demonstrate a needle and contrast inferior to the right L5 pedicle. FL/FL guidance in treatment room IMPRESSION: Fluoroscopy during procedure. Please see procedure report for additional information. Electronically signed by: Elías Henderson MD 03/05/2025 02:56 PM EDT
== END 2025-03-05 08:19 | disposition home or self-care (01) ==
LOC: CF 08:18
PROVIDERS: Visit Provider Internal Medicine
DX: M54.17 Radiculopathy, lumbosacral region (principal)
CPT/HCPCS: 64483; J1100; J2003; Q9967

== ENCOUNTER 2025-03-05 10:48 | Outpatient (AMB) | payer BC, SELFPAY ==
[2025-03-05 11:00] VITALS: BP 136/78; PULSE 84; RESP 16; O2SAT 99; BMI 28.1
--- NOTE | 2025-03-05 11:00 | MHC.OFFVIS ---
Vital Signs 03/05/25 11:00 03/05/25 12:12 Height 5 ft 8 in Weight 185 lb BMI 28.1 BP 136/78 113/75 Blood Pressure Location Lt brachial Lt brachial Position Sitting Sitting Respiration 16 16 Pulse 84 91 Pulse Source Pulse Oximeter Pulse Oximeter Pulse Oximetry (%) 99 98 Oxygen Delivery Method Room Air Room Air Intake Visit Reasons: Right L5-S1 TFESI/ Ativan Allergies sulfamethoxazole (From BACTRIM) Allergy (Unknown, Verified 02/10/25 10:43) HIVES trimethoprim (From BACTRIM) Allergy (Unknown, Verified 02/10/25 10:43) HIVES lactose (LACTOSE) Adverse Reaction (Unknown, Verified 02/10/25 10:43) DIARRHEA HPI HPI Right L5-S1 TFESI/ Ativan: Details: Patient presents for scheduled procedure. Denies any recent cough, cold, infection, fever or other significant changes in medical history since last office visit. [facility] Medical History Lumbar scoliosis Lumbar radiculopathy GERD (gastroesophageal reflux disease) No known health problems Surgical History History of lung surgery (~2009) History of arthroplasty of left ankle Social History Alcohol intake: current Alcohol intake frequency: holidays/special occasions only Alcohol type: hard liquor Patient Tobacco Use Status: Current everyday Tobacco user Cigarette Packs Per Day: 0.5 Substance Use Type: Marijuana Physical Exam Vital Signs: Last Vital Signs Pulse 91 03/05/25 12:12 Resp 16 03/05/25 12:12 BP 113/75 03/05/25 12:12 Pulse Ox 98 03/05/25 12:12 Oxygen Delivery Method Room Air 03/05/25 12:12 BMI result Body Mass Index 28.1 Office Procedures AMB Joint Injection/Aspiration Joint Injection/Aspiration Details: Transforaminal epidural steroid injection, Right L5/S1 After obtaining written consent, pre-procedure blood pressure and heart rate were stable and recorded in the nursing record. The patient was placed in the prone position on the fluoroscopy table. The lumbosacral area was prepped with chloraprep, allowed to dry and draped in sterile fashion. Using fluoroscopy, the skin overlying our target was anesthetized with 0.5% lidocaine. A 22 gauge 3.5 inch spinal needle was advanced to the safe triangle in the upper pole of the right L5 foramen. No paresthesias were elicited with needle placement and aspiration was negative for blood and CSF. Correct needle position was confirmed with approximately 1 ml contrast dye (Omnipaque 180 mg/ml) injected under real-time fluoroscopy. No evidence of vascular or intrathecal uptake was seen and there was both epidural and peripheral spread of the contrast agent. 10 mg dexamethasone plus 1 ml containing 0.5% lidocaine was slowly injected. The needle was flushed and removed. The skin was cleansed and a sterile bandages were applied. The patient tolerated the procedure well and no complications were encountered. Following the procedure the patient's vital signs were stable. The patient was discharged home in good condition with post-procedural instructions. Time Out: Immediately prior to the procedure, the following was verbally confirmed that there is a signed consent form and that the correct patient, planned procedure, site and side are consistent with documentation and that necessary equipment and/or blood products are available prior to the start of the case. Complications: none EBL: <5 cc Coding 39670 - Caudal/Lumbar Epidural/Interlaminar with fluoroscopy Procedure code (CPT) selection complete Assessment & Plan Assessment & Plan (1) Lumbar radiculopathy: Code(s): M54.16 - Radiculopathy, lumbar region Category: Medical Plan Patient is status post right L5/S1 TFESI. Patient tolerated procedure well and was discharged home in stable condition with discharge instructions. All questions were answered. We will follow-up via telephone or in clinic to assess response to therapy. A follow-up appointment was made during today's visit. Orders: Orders FL guidance in treatment room 03/05/25 M54.16 - Radiculopathy, lumbar region Medications: New lorazepam (Ativan) Take 30 minutes prior to arrival to procedure 1 mg PO ONCE 1 tab 0RF anxiety Coding Level of Care Code Procedure Only Diagnoses Lumbar radiculopathy M54.16 CPT Codes Coding - Joint 11: 45498 - Caudal/Lumbar Epidural/Interlaminar with fluoroscopy ([id number])
[2025-03-05 12:12] VITALS: BP 113/75; PULSE 91; RESP 16; O2SAT 98
== END 2025-03-05 12:20 | disposition home or self-care (01) ==
LOC: HO.PMCPRC 10:48
PROVIDERS: PCP Nurse Practitioner Family; Visit Provider Internal Medicine
DX: M54.16 Radiculopathy, lumbar region (principal)
CPT/HCPCS: 64483

== ENCOUNTER 2025-04-02 08:52 | Outpatient (REF) | payer BC, SELFPAY ==
--- NOTE | ~2025-04-02 | US_ITS ---
EXAMINATION: US RETROPERITONEAL LIMITED (RENAL ONLY) CLINICAL INFORMATION: N28.1. Cyst of kidney, acquired.. COMPARISON: None available. TECHNIQUE: Real-time ultrasound kidneys using grayscale technique. FINDINGS: RIGHT KIDNEY: 10 x 6 x 6 cm (SAG x AP x TRV). Volume: 195 cc. Normal echotexture. Renal cortical thickness is normal. No hydronephrosis. 0.7 cm anechoic lesion in the renal parenchyma at the midportion without flow on color Doppler interrogation or nodular components. LEFT KIDNEY: 12 x 6 x 6 cm (SAG x AP x TRV). Volume: 240 cc. Normal echotexture. Renal cortical thickness is normal. No hydronephrosis. No solid or cystic lesion. US/US renal BI IMPRESSION: 0.7 cm simple cyst, right kidney. No hydronephrosis.. Electronically signed by: Charly Law MD 04/02/2025 09:15 AM EDT
== END 2025-04-02 08:53 | disposition home or self-care (01) ==
LOC: HO.US 08:52
PROVIDERS: Visit Provider Nurse Practitioner Family
DX: N28.1 Cyst of kidney, acquired (principal); M54.16 Radiculopathy, lumbar region; M51.360 Other intervertebral disc degeneration, lumbar region with discogenic back pain only; M51.27 Other intervertebral disc displacement, lumbosacral region; M47.816 Spondylosis without myelopathy or radiculopathy, lumbar region; M41.9 Scoliosis, unspecified
CPT/HCPCS: 76775

== ENCOUNTER → 2025-04-02 08:55 | Outpatient (BNV) | payer BC, SELFPAY | PROVIDERS: Visit Provider Radiology Diagnostic Radiology | DX: N28.1 Cyst of kidney, acquired (principal) | CPT/HCPCS: 76775 ==

== ENCOUNTER 2025-04-02 09:41 | Outpatient (AMB) | payer BC, SELFPAY ==
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
[2025-04-02 09:55] VITALS: BP 132/82; PULSE 79; O2SAT 97; BMI 28.0
== END 2025-04-02 10:15 | disposition home or self-care (01) ==
LOC: HO.PMC 09:42
PROVIDERS: PCP Nurse Practitioner Family; Visit Provider Nurse Practitioner Family
DX: M54.16 Radiculopathy, lumbar region (principal); M51.360 Other intervertebral disc degeneration, lumbar region with discogenic back pain only; M51.27 Other intervertebral disc displacement, lumbosacral region; M47.816 Spondylosis without myelopathy or radiculopathy, lumbar region; M41.9 Scoliosis, unspecified
CPT/HCPCS: 99214

== ENCOUNTER 2025-04-06 12:45 | Outpatient (AMB) | payer BC, SELFPAY ==
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
[2025-04-06 13:03] VITALS: BMI 28.0
== END 2025-04-06 13:42 | disposition home or self-care (01) ==
LOC: HO.HNS 12:46
PROVIDERS: PCP Nurse Practitioner Family; Referring Provider Nurse Practitioner Family; Visit Provider Physician Assistant
DX: M51.27 Other intervertebral disc displacement, lumbosacral region (principal)
CPT/HCPCS: 99204

== ENCOUNTER 2025-06-10 06:12 | Day surgery (SDC) | payer BC, SELFPAY ==
--- OUTSIDE RECORDS SUMMARY | 2025-05-05 18:51 | XMS_ITS | Data Portability ---
Author Organization JOSEP Clemente s, [address] Address [address] [place] [address] Care Team Providers Care Senior Front End Engineer Name Role Phone [facility] Insurance Adju ster Unavailable Assessment No assessment recorded. Plan of Treatment Reminders Order Date Submit Date Provider Last Modified By Organization Details Last Modified Time Details Appointments None recorded. Lab None recorded. Referral None recorded. Procedures None recorded. Surgeries None recorded. Imaging None recorded. Medication Orders clindamycin HCl 300 mg capsule 2023 024 [id number], [address] [place] [address], [address], 19:47:39 triamcinolo ne acetonide 0.1 % topical cream 2023 024 [id number], [address] [place], [address], 19:48:25 prednisone 10 mg tablet 2023 024 [id number], [address] [place], [address], 19:45:37 Patient TargetsNo targets recorded. Patient Instructions Encounter Date Encounter Id Patient Instructions Last Modified By Organization Details Last Modified Time 11/09/2023 [id number] lupus: care instructions Not available 11/09/2023 09:13:36 rash: care instructions Not available 11/09/2023 09:13:36 12/30/2023 [id number] hives: care instructions [email or web address] Not available 12/30/2023 19:47:38 Reason for Referral None Reported. Problems Name Problem SNOMED Code Status Onset Date Resolution Date Notes Provider Name and Address Organization Details Recorded Time Rash of systemic lupus erythematosus 81205896 Active 2023 Monica Krause, ELVIRA [address], [place], [address], [place] - [facility] 4 09:12:05 Cellulitis of skin 432192109 Active 2023 Remi Gonzalez DO [address] [place], [place], [address], [place] - [facility] 4 19:48:32 Problem Notes None recorded. Medical Equipment None Reported. Allergies Allergen ID Allergen Name Allergen Category Reaction Reaction Severity Criticality Documentation Date Start Date Code Code System Note Provider Name and Address Organization Details Recorded Time 131301 Bactrim medicatio n anaphylax is Not available high 11/09/2023 66055 9 RxNorm Sonia Templeton null, [place] - [facility] 19:45:23 008005 lactose food,medi cation nausea severe Not available 12/30/2023 6211 RxNorm Soniacyn Templeton null, [place] - [facility] 19:45:51 Medications Name Sig Start Date Stop Date Status Note LastModified by Organization Details LastModified Time prednisone 10 mg tablet 4 pills po qd x 3 days, 3 pills po qd x 3 days, 2 pills po qd x 2 days, 1 pills po qd x 2 days 12/29 completed Not Available Not Available Not Available clindamycin HCl 300 mg capsule Take 1 capsule every 8 hours by oral route for 10 days. 2023 active Not Available Not Available Not Avai lable triamcinolo ne acetonide 0.1 % topical cream APPLY A THIN LAYER TO THE AFFECTED AREA(S) BY TOPICAL ROUTE 2 TIMES PER DAY as needed 2023 active Not Available Not Available Not Avai lable Vitals Date Recorded Body height Body mass index (BMI) Body weight Oxygen saturation Oxygen saturation in Arterial blood by Pulse oximetry Heart rate Body temperature Systolic And Diastolic Provider Name and Address Organization Details Last Updated DateTime 4 172.72 cm 30.7 kg/m2 78747.6 6 g 98.5 % 98.5 % 79 /min 98.5 [degF] 152/97 mm[Hg] Susana Smith [facility] 08:45:28 Date Recorded Body height Body mass index (BMI) Body weight Oxygen saturation Oxygen saturation in Arterial blood by Pulse oximetry Pain severity - 0-10 verbal numeric rating [Score] - Reported Heart rate Respiratory rate Body temperature Systolic And Diastolic Provider Name and Address Organization Details Last Updated DateTime 4 172.72 cm 30.9 kg/m2 68274.2 5 g 97 % 97 % 0 108 /min 18 /min 97.1 [degF] 127/86 mm[Hg] Sonia Templeton [facility] 19:44:54 Social History Question Answer Notes LastModified by [employer] Details LastModified Time Tobacco Smoking Status Current Every Day Smoker Sonia mccarty [facility] 12/30/2023 19:46:46 Have You Had A Flu Shot This Season? Yes [email or web address] Information not available 12/30/2023 Have You Had Direct Contact, Or Contact During Intimacy, With Monkeypox Rash, Scabs, Or Body Fluids From A Person With Monkeypox? No Information not available 11/09/2023 What Is Your Relationship Status? [email or web address] Information not available 12/30/2023 Have You Recently Traveled Abroad? No Information not available 11/09/2023 Are You Currently In School? No Information not available 11/09/2023 Sex: Unknown Functional Status Question Answer Note LastModified by [employer] Details LastModified Time How many times per week do you consume alcohol? Less than 1 time per week [email or web address] Information not available 12/30/2023 Do you use any illicit or recreational drugs? No [email or web address] Information not available 12/30/2023 Do you or [...] Details LastModified Time Mother Lupus erythematosu s [email or web address] Not available 2023 19:46:14 Mother Malignant neoplastic disease [email or web address] Not available 2023 19:46:25 Medical History No medical history recorded. Past Encounters Encounter ID Performer Location Encounter Start Date Encounter Closed Date Diagnosis/Indication Diagnosis SNOMED-CT Code Diagnosis ICD10 Code Diagnosis IMO Codes Diagnosis Note [id number] [address] [place] [address] 07/20/2021 11:23:00 07/20/2021 12:07:15 [id number] [address] [place] [address] 11/05/2020 09:02:57 11/05/2020 09:25:26 [id number] [address] [place] [address] 04/29/2018 18:04:12 04/29/2018 18:56:59 [id number] [address] [place] [address] 02/20/2018 18:26:14 02/20/2018 20:24:[id number] [place] [address] 08/02/2021 11:27:35 08/02/2021 11:58:51 [id number] [place] [address] 11/24/2020 12:51:08 11/24/2020 13:37:[id number] [address] 07/12/2021 09:11:17 07/12/2021 10:33:33 [id number] [facility] [address] [address] 06/20/2021 08:51:14 06/20/2021 14:36:02 [id number] [place] [address] 09/25/2017 11:06:27 09/25/2017 11:54:00 [id number] Monica Krause NP [address] [address] 11/09/2023 08:20:09 11/09/2023 09:22:35 Rash of systemic lupus erythematosus 62165097 M32.8 Keep your daily schedule as simple [...] complete evaluation of possible lupus flare up [id number] Remi Gonzalez DO [address] [address] 12/30/2023 19:33:28 12/30/2023 19:49:56 Cellulitis of skin 971615328 L03.90 See pcp in 3-4 days. Go [...] ID Guarantor Name 12/30/2023 1 [place] [id number] Saurabh Edwards [id number] Saurabh Edwards 11/09/2023 AMGUARD [id number] [employer] Saurabh Edwards 11/09/2023 [employer]IC WORKERS COMP Saurabh Edwards 11/09/2023 GENERIC WORKER'S COMP (MOVED TO HOLD) Saurabh Edwards 11/09/2023 1 [employer] (PPO) Saurabh Edwards [id number] Saurabh Edwards Notes Date Note Type Note Provider Name and Address Organization Details Recorded Time 4 text/html Skin Redness UCReported by PatientSkin Redness UCFor quality, patient reportserythematousbut reportsnot painful. For severity, patient reportsmoderate. For alleviating factors, patient reportsnothing gives relief. For location, patient reportsface,bilateral arm, andbilateral hand. For duration, patient reports4 weeks. For onset, patient reportsgradual onset. For aggravating factors, patient reportsnothing makes it worse. For symptoms, patient reportsno fever,no nausea, andno vomiting. UC Rash/Skin LesionReported by Patient AbscessReported by Patient Presents with rash for a month now , both arms and around his right eye, cheeks with other associated sx Monica Krause NP [address] [place], [address], [place] - [facility] 11/09/2023 19:53:34 4 text/html pt presenting w/ rash today left antecubital area. Onset 5-6 days ago. pt reports he was away @ [employer], prolonged sun exposure- pt did not use sunscreen. pt has rash in L. AC area, scabbed and raw, pt reports it is intermittently itchy, has gotten worse over the course. pt reports slightly spread to R. arm. pt has tried cortisone cream, denies pain, and radiation of pain. no feversno hx of eczema or psoriasis. no hx of multple frequent rashes Remi Gonzalez, DO [address] [place], [address], [place] - [facility] 12/30/2023 19:56:51
[2025-05-27 12:29] VITALS: BMI 28.0
[2025-06-10] VITALS (13 sets, daily range): BP systolic 98–116; BP diastolic 61–85; PULSE 57–82; RESP 12–15; TEMP 36.1–36.8; O2SAT 95–99; BMI 27.6
--- NOTE | ~2025-06-10 | FL_ITS ---
EXAMINATION: XR FLUOROSCOPY WITH IMAGES CLINICAL INFORMATION: Left L5-S1 discectomy COMPARISON: None available. TECHNIQUE: Fluoroscopy time: 2.8 seconds DAP: 1.3 mGycm2 Images: 1 FINDINGS: Fluoroscopy provided in the operating room. Single image, with metallic surgical instrument projected posterior to the L5 vertebral body. FL/FL guidance in OR IMPRESSION: Fluoroscopy provided in the operating room. See surgical report for details. Electronically signed by: Rohith Johnson MD 06/11/2025 01:21 PM LA[facility]
[2025-06-10] MEDS: Lactated Ringers 1,000 ML 100 ML IVCONT (06:45)
--- NOTE | 2025-06-10 06:54 | MHC.SHP ---
Pre-Procedural Eval Section A - 24 Hr Update-Section A only Date of Service: 06/10/25 Section B - Complete if H&P > 30 days Chief Complaint: Other intervertebral disc displacement, lumbosacra Allergies: Allergies Allergy/AdvReac Type Severity Reaction Status Date / Time sulfamethoxazole (From Allergy Intermediate HIVES Verified 06/10/25 06:19 BACTRIM) trimethoprim (From BACTRIM) Allergy Intermediate HIVES Verified 06/10/25 06:19 lactose (LACTOSE) AdvReac Intermediate DIARRHEA Verified 06/10/25 06:19 Review of Systems Sugical H&P ROS: Negative: Constitution, Cardiovascular, Respiratory, Neurological, Psychiatric, Hem-Onc, Allergic/Immunologic, Gastrointestinal, Genitourinary, Musculoskeletal, Integumentary, Endocrine and Eyes/Ears/Nose/Throat Exam Surgical H&P Exam: Not Evaluated: HEENT, Not Evaluated: Heart, Not Evaluated: Lungs, Not Evaluated: Extremities, Not Evaluated: Abdomen, Not Evaluated: Skin and Not Evaluated: Neurological Exam Comment: The patient is awake, alert, in no acute distress. Proposed surgical incision site is clean, dry, with no signs of recent trauma. Plan Diagnosis/Plan: Unchanged I have reviewed the history and physical and performed a pertinent physical examination on my patient. No changes have occurred unless specified. Plan remains the same, left L5-S1 microdiskectomy Time Spent With Patient Time: Total time managing care of this patient today _13___ minutes.
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
--- NOTE | 2025-06-10 08:22 | P.DS_ITS ---
DS: Providers Provider Date of Service: 06/10/25 Date of discharge: 06/10/25 Primary care physician: Unknown Physician DS: Summary Time Attestation Discharge Coordination Time (in mins): 12 Quality: Safe Use of Opioids Does Pt have an Active Cancer Diagnosis on the Problem List?: No Quality: Stroke Does the patient have a stroke diagnosis?: No Physical Exam Vital Signs: Vital Signs: Last Vital Signs Temp 98.3 F 06/10/25 06:26 Pulse 82 06/10/25 06:26 Resp 15 06/10/25 06:26 BP 115/76 06/10/25 06:26 Pulse Ox 97 06/10/25 06:26 O2 Del Method Room Air 06/10/25 06:26 BMI result Body Mass Index 27.6 Discharge Plan Discharge Patient Disposition: Home, Self-Care Referrals: Physician,Unknown J [Primary Care Provider, Medical] - 1 Week Discharge Medications: New oxycodone 5 mg tablet 5 mg PO Q6H PRN (Reason: pain) Qty: 20 0RF Rx Instructions: Partial Fill upon patient request. Continued methocarbamol 750 mg tablet 1,500 mg PO BID PRN (Reason: muscle spasms) 30 Days Qty: 120 1RF Held ibuprofen 600 mg tablet 600 mg PO Q6H PRN (Reason: pain) Qty: 20 0RF Hold Instructions: Resume on 06/11/25. Discharge Orders: Discharge Order (Routine); Ordered 06/10/25 Ordered By: Stanley Duenas Diet: Advance to usual diet Activity on Discharge: As tolerated Activity Restrictions/Additional Instructions: After your spinal surgery we ask you to observe the following restrictions/guidelines: Activity: It is normal to feel some discomfort as you increase your activity, but that will improve with time. We ask you avoid heavy lifting or acitivities that cause pain. As a general rule, 8lbs is a safe limit for lifting right after surgery. Walk as much as you feel comfortable but not to exhaustion. You will feel extra tired the first few days after surgery. Stay well hydrated. It is OK to walk up and down stairs You may return to driving when you are off narcotics (such as vicodin, oxycodone, dilaudid, etc), and you are back to normal functional capacity. If yo u have any concerns please check with office before driving. Return to work is specific to each patient and each surgery, so please speak with your doctor/PA at first follow up. Please bring paperwork such as FMLA at that time if you need it filled out. Medications: We recommend you take 500mg Tylenol every 4 hours for the first week after surgery, if you do not have any liver issues and can tolerate this medication. Do not exceed 4,000mg daily. We also recommend you take Ibuprofen 600mg every 8 hours for the first week after surgery starting on post op day 1, ?if you do not have any kidney or sugar control issues and can tolerate this medication. Do not exceed 2,000mg daily. We will give you a short supply of narcotics after surgery (usually one weeks w orth). If you need more please call the office but do not use more than prescribed. You will need to give our office 48 hours notice if you need narcotics refilled and we do not fill narcotics on weekends or evenings. If you are on a narcotic, it is a good idea to take a stool softener such as colace or senna to avoid constipation If you take blood thinner such as aspirin, Plavix, Coumadin, Effient, Eliquis etc for conditions such as Afib, DVT, Pulmonary embolus, coronary disease, stents etc please speak with your surgeon about specific details as to when you can resume these medications. You can resume NSAIDs on post op day 1 (eg: Motrin, Naproxen, etc). Follow up: Please call the office, , after surgery to arrange a 3 week follow up for wound check. Wound Care: You may remove your dressing on the first day after surgery. ?You may ?leave open to air. Please do not remove the steri strips underneath. they will fall off on their own in one week. IT IS NORMAL FOR THE WOUND TO OOZE OR BE BLOODY FOR A FEW DAYS AFTER SURGERY. ?IF THIS HAPPENS JUST PLACE NEW DRESSING OVER IT TO AVOID STAINING CLOTHES. You may shower on post op day # 1 We ask that you do not let the water soak the wound. If it does get wet, just towel dry lightly. Please do not scrub your incision or place any type of chemical/ointment on the wound. No tub baths, pools or jacuzzis for one month. If you have any leaking or redness from your wound, or fevers, please call the office. Print Language: Swedish
--- NOTE | 2025-06-10 08:26 | W.PM.OPN ---
Operative Note Operative Note Date of Service: 06/10/25 Narrative: Preoperative diagnosis: Lumbar radiculopathy due to disc herniation Postoperative diagnosis: Same Procedure: Left L5-S1 microdiskectomy with microscope Surgeon: Adriel Hamm MD, PhD Contact Lens Polisher: Stanley CAR This 35-year-old male suffering from back pain that radiates down his right leg and left leg. An MRI shows a disc herniation L5-S1, influence on both nerve roots but more eccentric towards the left side. The patient was offered a left L5-S1 microdiskectomy to decompress the nerve root. The procedure complications were explained. The patient was consented. The patient was brought to the operating room and endotracheally intubated. The patient was turned in a prone position on the Phil frame. Prepping and draping was done followed by time-out. A mid lumbar incision was made followed by release of the paravertebral muscles on the left side to expose the L5-S1 interspace. An intraoperative x-rays obtained to confirm the correct level. The microscope was brought in. A L5 laminotomy was done followed by opening of the flavum ligament. The S1 nerve root was identified and retracted medially to expose the L5-S1 disc space. I could palpate a disc bulge medial from the S1 nerve root, which I carefully removed with a pituitary. The disc space was inspected and any residual disc fragments were removed. This resulted in an excellent decompression of the S1 nerve root. Hemostasis was done. The microscope was removed. Marcaine was injected intramuscularly.The incision was closed in two layers. Steri-Strips used to approximate the incision. An op-site were taken there was used to cover the incision. All sponge and needle counts were correct. Patient was extubated and transported in stable condition to recovery room. this procedure was done with the aid of a physician insurance assistant who performed the initial exposure until the microscope was brought in and performed the closure of the incision. Anesthesia: General Blood loss: 10 mL Complications: None Specimen: None Surgical time: 35 minutes Disposition: Discharge home
[2025-06-10] MEDS: oxyCODONE HCl Immed Release 5 MG TABLET PO (10:30)
== END 2025-06-10 11:45 | disposition home or self-care (01) ==
PROVIDERS: Visit Provider Neurological Surgery
PROC: (CPT 63030; principal; 2025-06-10 07:30)
DX: M51.17 Intervertebral disc disorders with radiculopathy, lumbosacral region (principal); M51.27 Other intervertebral disc displacement, lumbosacral region; Z91.0110 Allergy to milk products, unspecified; Z88.2 Allergy status to sulfonamides; Z79.1 Long term (current) use of non-steroidal anti-inflammatories (NSAID); Z79.899 Other long term (current) drug therapy; Z98.890 Other specified postprocedural states; F17.210 Nicotine dependence, cigarettes, uncomplicated
CPT/HCPCS: 63030; J0131; J0690; J1100; J1171; J1885; J2003; J2250; J2371; J2405; J2704; J3010

== ENCOUNTER → 2025-06-10 06:12 | Outpatient (BNV) | payer BC, SELFPAY | PROVIDERS: Visit Provider Physician Assistant | DX: M51.16 Intervertebral disc disorders with radiculopathy, lumbar region (principal) | CPT/HCPCS: 63030; 99499 ==

== ENCOUNTER 2025-07-01 11:45 | Outpatient (AMB) | payer BC, SELFPAY ==
--- NOTE | 2025-07-01 11:46 | HO.SPINEOV ---
Intake Visit Reasons: 1st Post Op Intake Note: Mr. Edwards is here today for his 1st post op. Honing Machine Try Out Setter Required: No Allergies sulfamethoxazole (From BACTRIM) Allergy (Intermediate, Verified 06/10/25 06:19) HIVES trimethoprim (From BACTRIM) Allergy (Intermediate, Verified 06/10/25 06:19) HIVES lactose (LACTOSE) Adverse Reaction (Intermediate, Verified 06/10/25 06:19) DIARRHEA Assessment & Plan Assessment & Plan (1) Lumbar radiculopathy: Code(s): M54.16 - Radiculopathy, lumbar region Category: Medical Plan Procedure: Left L5-S1 microdiskectomy Saurabh is a pleasant 35 year old male who comes in today for his 1st postoperative visit after having the above mentioned procedure completed by Dr. Hamm. He reports that overall he has done very well since his surgery. He reports that this severe left-sided leg pain that he had preoperatively has resolved. He is very happy with the surgery. He still reports very mild low back pain that will very occasionally occur, but otherwise he is essentially back to normal. His significant other accompanied him to this visit today and they asked several questions regarding return to work restrictions. 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 They will discuss this further and call our clinic to update us before his expected returned to work day which is tentatively scheduled for around mid July. No new neurological deficits. The patient ambulates well and rises from a seated position without difficulty. He uses no assistive devices to ambulate. His posterior incision site is closed and well healing, with no signs of erythema or drainage. I would like to follow up with Saurabh again in 6 weeks for his 2nd postoperative visit. Stanley Hamm MD,PhD [facility] Coding Level of Care Code Global (65230) Diagnoses Lumbar radiculopathy M54.16
--- OUTSIDE RECORDS SUMMARY | 2025-07-01 11:48 | XMS_ITS | Data Portability ---
Author Organization [facility] Clemente [facility], [address] Address [address] [place] [address] Care Team Providers Care Gastroenterology Teacher Name Role Phone [facility] [employer] Insurance Adju ster Unavailable Assessment No assessment recorded. Plan of Treatment Reminders Order Date Submit Date Provider Last Modified By Organization Details Last Modified Time Details Appointments None recorded. Lab None recorded. Referral None recorded. Procedures None recorded. Surgeries None recorded. Imaging None recorded. Medication Orders clindamycin HCl 300 mg capsule 2023 024 [id number] [address] [place] [address], [address], 19:47:39 triamcinolo ne acetonide 0.1 % topical cream 2023 024 [id number], [address] [place], [address], 19:48:25 prednisone 10 mg tablet 2023 024 [id number], [address] [place], [address], 19:45:37 Patient TargetsNo targets recorded. Patient Instructions Encounter Date Encounter Id Patient Instructions Last Modified By Organization Details Last Modified Time 11/09/2023 [id number] lupus: care instructions Not available 11/09/2023 09:13:36 rash: care instructions Not available 11/09/2023 09:13:36 12/30/2023 [id number] hives: care instructions [email or web address] Not available 12/30/2023 19:47:38 Reason for Referral None Reported. Problems Name Problem SNOMED Code Status Onset Date Resolution Date Notes Provider Name and Address Organization Details Recorded Time Rash of systemic lupus erythematosus 26696640 Active 2023 Monica Krause, ELVIRA [address], [place], [address], [place] - [facility] 4 09:12:05 Cellulitis of skin 651636790 Active 2023 Remi Gonzalez, DO [address] [place], [address], [place] - [facility] 4 19:48:32 Problem Notes None recorded. Medical Equipment None Reported. Allergies Allergen ID Allergen Name Allergen Category Reaction Reaction Severity Criticality Documentation Date Start Date Code Code System Note Provider Name and Address Organization Details Recorded Time 704184 Bactrim medicatio n anaphylax is Not available high 11/09/2023 26714 9 RxNorm Sonia Templeton null, [place] - [facility] 19:45:23 259643 lactose food,medi cation nausea severe Not available 12/30/2023 6211 RxNorm Soniacyn mccarty, [place] - [facility] 19:45:51 Medications Name [...] mass index (BMI) Body weight Oxygen saturation Heart rate Body temperature Systolic And Diastolic Provider Name and Address Organization Details Last Updated DateTime 4 172.72 cm 30.7 kg/m2 36741.6 6 g 98.5 % 79 /min 98.5 [degF] 152/97 mm[Hg] Susana Smith PA - [facility] 4 08:45:28 Date Recorded Body height Body mass index (BMI) Body weight Oxygen saturation Pain severity - 0-10 verbal numeric rating [Score] - Reported Heart rate Respiratory rate Body temperature Systolic And Diastolic Provider Name and Address Organization Details Last Updated DateTime 4 172.72 cm 30.9 kg/m2 72713.2 5 g 97 % 0 108 /min 18 /min 97.1 [degF] 127/86 mm[Hg] Sonia Templeton PA - [facility] 19:44:54 Social History Question Answer Notes LastModified by PingStamp Details LastModified Time Tobacco Smoking Status Current Every Day Smoker Sonia mccarty [place] - [facility] 12/30/2023 19:46:46 Have You Had A Flu Shot This Season? Yes [email or web address] Information not available 12/30/2023 Have You Had Direct Contact, Or Contact During Intimacy, With Monkeypox Rash, Scabs, Or Body Fluids From A Person With Monkeypox? No Information not available 11/09/2023 What Is Your Relationship Status? [email or web address] Information not available 12/30/2023 Have You Recently Traveled Abroad? No Information not available 11/09/2023 Are You Currently In School? No Information not available 11/09/2023 Sex: Unknown Functional Status Question Answer Note LastModified by PingStamp Details LastModified Time How many times per week do you consume alcohol? Less than 1 time per week [email or web address] Information not available 12/30/2023 Do you use any illicit or recreational drugs? No [email or web address] Information not available 12/30/2023 Do you or have you ever used any other forms of tobacco or nicotine? Yes Information not available 11/09/2023 What is your level of alcohol consumption? Occasional [email or web address] Information not available 12/30/2023 Are you currently employed? Yes Information not available 11/09/2023 Mental Status None recorded. Family History Relationship Description Onset Age of this Age Resolved Age Notes LastModified by Organization Details LastModified Time Mother Lupus erythematosu s [email or web address] Not available 2023 19:46:14 Mother Malignant neoplastic disease [email or web address] Not available 2023 19:46:25 Medical History No medical history recorded. Past Encounters Encounter ID Performer Location Encounter Start Date Encounter Closed Date Diagnosis/Indication Diagnosis SNOMED-CT Code Diagnosis ICD10 Code Diagnosis IMO Codes Diagnosis Note [id number] [address] [place] [address] 07/20/2021 11:23:00 07/20/2021 12:07:15 [id number] [address] [place] [address] 11/05/2020 09:02:57 11/05/2020 09:25:26 [id number] [address] [place] [address] 04/29/2018 18:04:12 04/29/2018 18:56:59 [id number] [address] [place] [address] 02/20/2018 18:26:14 02/20/2018 20:24:50 [id number] [facility] [address] 08/02/2021 11:27:35 08/02/2021 11:58:51 [id number] [place] [address] 11/24/2020 12:51:08 11/24/2020 13:37:17 [id number] [facility] [address] [address] 07/12/2021 09:11:17 07/12/2021 10:33:33 [id number] [facility] [address] [address] 06/20/2021 08:51:14 06/20/2021 14:36:02 [id number] [address] [facility] [address] 09/25/2017 11:06:27 09/25/2017 11:54:00 [id number] Monica Krause, ELVIRA [address] [address] 11/09/2023 08:20:09 11/09/2023 09:22:35 Rash of systemic lupus erythematosus 56826429 M32.8 Keep your daily schedule as simple [...] complete evaluation of possible lupus flare up [id number] Remi Gonzalez DO _[address] [address] 12/30/2023 19:33:28 12/30/2023 19:49:56 Cellulitis of skin 817738591 L03.90 See pcp in 3-4 days. Go [...] ID Guarantor Name 12/30/2023 1 [place] [id number] Saurabh Edwards [id number] Saurabh Edwards 11/09/2023 AMGUARD [id number] [employer] Saurabh Edwards 11/09/2023 GENERIC WORKERS COMP Saurabh Edwards 11/09/2023 GENERIC WORKER'S COMP (MOVED TO HOLD) Saurabh Edwards 11/09/2023 1 [place] Saurabh Edwards [id number] Saurabh Edwards Notes Date Note Type [...] other associated sx Monica Krause NP [address], [place], [address], [place] - [facility] 11/09/2023 19:53:34 4 text/html pt presenting w/ rash today left antecubital area. Onset 5-6 days ago. pt reports he was away @ [facility], prolonged sun exposure- pt did not use [...] Remi Gonzalez, DO [address] [place], [address], [place] - [facility] 12/30/2023 19:56:51
== END 2025-07-01 12:01 | disposition home or self-care (01) ==
LOC: HO.HNS 11:45
PROVIDERS: Visit Provider Physician Assistant
DX: M54.16 Radiculopathy, lumbar region (principal)
CPT/HCPCS: 99024